=== PATIENT | male | born 2000 | race Caucasian/White ===

== ENCOUNTER 2025-06-17 18:19 | Emergency (ER) | payer OTHER, SELFPAY ==
[2025-06-17 18:42] VITALS: BP 158/98
--- NOTE | 2025-06-17 22:55 | ED.GENMED ---
History of Present Illness
General
Chief Complaint: Back Pain
Source: patient
Exam Limitations: none
Time Seen by Provider: 06/17/25 22:43
History of Present Illness
History of Present Illness:
25yoM with a history of anxiety and depression presenting for evaluation of low back pain. 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 He was having some mild soreness in his low back last night. His pain became worse today
and he started to have severe spasms. Pain radiates to bilateral hips and is worse with movement. He took a dose of Flexeril this morning at 9:30 AM which did not help. The only other thing he tried was heat. His legs gave out on him several
times today due to the pain and he states his legs feel shaky. He denies any paresthesias. No bowel/bladder incontinence, urinary retention, fevers, abdominal pain. He denies any history of IV drug use or cancer.
Phy Exam
General Physical Exam
General Presentation: well appearing and no apparent distress
General Skin: warm and dry
General Habitus: normal
General Mental: alert
ENT Exam
ENT Exam: normocephalic
Cardiovascular Exam
Cardiovascular Exam: normal peripheral pulses (2+ DP pulses bilaterally)
Pulmonary Exam
Pulmonary Exam: no respiratory distress
Neurological Exam
Neurological Exam: alert and no motor deficits (5/5 strength in bilateral lower extremities. Patient able to ambulate unassisted. )
[place] Coma Scale
Eye Opening: Spontaneous
Verbal Response: Oriented
Motor Response: Obeys Commands
GCS Total Score: 15
Musculoskeletal Exam
Musculoskeletal Exam: other (+Tenderness in midline lumbar region. No skin changes.)
Skin Exam
Skin Exam: normal color and warm/dry
Psychiatric Exam
Psychiatric Exam: normal mood/affect
Course
Orders/Labs/Results
Orders:
Orders
06/17/25 22:53
Acetaminophen [Tylenol] 1,000 mg PO NOW STA
Ketorolac [Toradol] 30 mg IM NOW STA
CR Lumbar Spine Comp Min 4 Vw* Urgent
Comment:
Reason For Exam: low back pain
06/17/25 22:54
Lidocaine [Lidocaine 4% Patch] 1 patch TOPICAL ONCE ONE
Apply Lidocaine patch(s) to:: low back
06/18/25 00:27
Cyclobenzaprine HCl [Flexeril] 10 mg PO NOW STA
Vital Signs
Initial and Last Documented VS:
Initial Vital Signs
Temp Pulse Resp BP Pulse Ox
98.7 F 97 16 158/98 98
06/17/25 18:42 06/17/25 18:42 06/17/25 18:42 06/17/25 18:42 06/17/25 18:42
Last Documented Vital Signs
Temp Pulse Resp BP Pulse Ox
98.7 F 76 18 143/82 97
06/17/25 18:42 06/18/25 00:18 06/18/25 00:18 06/18/25 00:18 06/18/25 00:18
MDM/Problems Addressed
Differential Diagnosis Includes:
25yoM here with low back pain. Lifted a patient yesterday while working as a home health aide. Otherwise denies trauma. No red flags in history including no fevers, saddle anesthesia, incontinence, hx of IVDU. He is hypertensive with otherwise
normal vitals. Lower extremities are neurovascularly intact. Differential diagnosis includes: muscular strain, doubt fracture, no radicular symptoms to suggest herniated disc
Lumbar spine x-rays obtained which appear normal per my interpretation. He was given IM Toradol, Tylenol, and lidocaine patch for symptoms. Suspect muscular strain/spasm. Prescriptions provided for prednisone and Flexeril. He has an appt scheduled
with his PCP in 2 weeks. He was also given contact information for orthopedics. ED return precautions reviewed. Patient discharged in stable condition.
*Pulse Oximetry
SaO2: 98
Oxygen Mode of Delivery: Room air
Patient hypoxic: no
*Critical Care Note
Total Time (30-74mins, 75-104mins- exclusive of procedures): Not Applicable
ED Attending Note
-
Portions of this chart may have been created with voice recognition software.� Occasional wrong word or��sound alike� substitutions may have occurred due to the inherent limitations of voice recognition software.
Discharge Plan
Departure
Patient Disposition: Home (Routine Discharge)
Date of Disposition: 06/18/25
Time of Disposition: 00:26
Patient with high blood pressure during this ER visit?: Yes
Discharge Problem:
Acute low back pain
Instructions: Low Back Pain (DC)
Prescriptions:
New
prednisone 50 mg tablet
50 mg PO DAILY Qty: 5 0RF
cyclobenzaprine 10 mg tablet
10 mg PO Q8H PRN (Reason: muscle spasms) Qty: 20 0RF
Referrals:
Beth Dunbar MD [Family Provider, Internal Medicine]
Christopher Lazar MD [Active, Orthopedics]
Activity Restrictions/Additional Instructions:
Take prednisone as prescribed. Apply heat to affected area. Use lidocaine patches daily (12 hours on, 12 hours off). Take Tylenol and ibuprofen as needed for pain. Take Flexeril as needed for muscle spasms.
Please follow-up with your family doctor and orthopedics. Return to the ER with any new or worsening symptoms.
Interventions
Interventions:
*Risk Screen - Suicide Last Done: 06/17/25 18:42
*Neglect/Abuse Screening Last Done: 06/17/25 18:42
*Nursing Disposition Last Done: 06/18/25 00:39
ED-Musculoskeletal Assessment Last Done: 06/17/25 22:59
Discharge Date and Time
Discharge Date/Time: 06/18/25 00:39
Print Language: YORUBA
[2025-06-17] MEDS: TYLENOL 1000 MG PO (23:06)
[2025-06-17] MEDS: TORADOL 30 MG IM (23:07)
[2025-06-17] MEDS: LIDOCAINE 4% PATCH 1 PATCH TOPICAL (23:09)
[2025-06-18 00:18] VITALS: BP 143/82
[2025-06-18] MEDS: FLEXERIL 10 MG PO (00:30)
== END 2025-06-18 00:39 | disposition home or self-care (01) ==
LOC: EMR 18:19
PROVIDERS: EMERGENCY PHYSICIAN Emergency Medicine; FAMILY PHYSICIAN Internal Medicine Infectious Disease
DX: M54.50 Low back pain, unspecified (principal); X50.0XXA Overexertion from strenuous movement or load, initial encounter; Y93.F2 Activity, caregiving, lifting; Y99.0 Civilian activity done for income or pay; F41.8 Other specified anxiety disorders
CPT/HCPCS: 99283; 96372; 72110